=== PATIENT | male | born 1985 | race Caucasian/White ===

== ENCOUNTER 2020-08-27 21:44 | Emergency (ER) | payer SELFPAY ==
[~2020-08-27] VITALS: Ht 170.2 cm; Wt 120.0 kg
[2020-08-27 21:45] VITALS: BP 173/99
[2020-08-27 23:54] LABS: CLARITY URINE TURBID (CLEAR); KETONES URINE 2+ (NEGATIVE); LEUKOCYTE ESTERASE URINE 3+ (NEGATIVE); NITRITE URINE POSITIVE (NEGATIVE); OCCULT BLOOD URINE 3+ (NEGATIVE); PROTEIN URINE 3+ (NEGATIVE); SPECIFIC GRAVITY URINE 1.027 (1.005-1.030)
[2020-08-28] LABS: COLOR URINE BLOODY (YELLOW)
[2020-08-28] MEDS ORDERED: LEVOFLOXACIN 250MG TABLET PO ONE (00:15)
[2020-08-28] MEDS: CEFTRIAXONE SODIUM 500 MG/VIAL IM NR (00:31)
[2020-08-28] MEDS: AZITHROMYCIN 500 MG TABLET PO NR (00:31)
[2020-08-28] MEDS: LIDOCAINE HCL 1% 20ML VIAL (Pyxis) INJ INFIL NR (00:31)
== END 2020-08-28 00:32 | disposition home or self-care (01) ==
LOC: ER 21:44
DX: N34.2 Other urethritis (principal)
CPT/HCPCS: 81003; 96372; 99283; J0696; J3490